=== PATIENT | male | born 1950 | race Caucasian/White ===

== ENCOUNTER 2018-10-11 16:49 | Emergency (ER) | payer OTHER, MEDICARE ==
--- NOTE | 2018-10-11 16:51 | PDOC ---
History of Present Illness - General Chief Complaint: Laceration Stated Complaint: RT 5TH FINGER LACERATION Time Seen by Provider: 10/11/18 16:50 History Source: Patient Exam Limitations: No Limitations - History of Present Illness Initial Comments: 10/11/18 16:51 67 Year old male presented to ED for cut to right fifth finger. Pt stated he was cutting potatoes and accidentally cut his finger. Pt stated he does not remember his last tetanus shot. Pt denied AC. Pt reported numbness at the tip of his finger. Past History - Past Medical History Allergies/Adverse Reactions: Allergies Allergy/AdvReac Type Severity Reaction Status Date / Time Penicillins Allergy Verified 10/11/18 16:50 Home Medications: Ambulatory Orders Losartan Potassium mg PO DAILY 10/11/18 Metoprolol Succinate [Toprol Xl] 25 mg PO DAILY 10/11/18 Simvastatin mg PO DAILY 10/11/18 Review of Systems - Review of Systems Able to Perform ROS?: Yes Comments:: 10/11/18 16:51 General: denied fever, chills, night sweats, generalized weakness. HEENT: denied sore throat, rhinorrhea, ear pain. Heart: denied chest pain, palpitations, syncope, lower extremity swelling, diaphoresis. Respiratory: denied shortness of breath, cough, sputum production, hemoptysis. Abdomen: denied abdominal pain, nausea, vomiting, diarrhea, constipation, blood in stool. : denied dysuria, increased urinary frequency, hematuria, urinary incontinence , flank pain. Back: denied back pain. Musculoskeletal: admitted to right fifth finger pain. Neurological: denied headache, dizziness, numbness, tingling, weakness. Skin: admitted to laceration. *Physical Exam - Physical Exam Comments: 10/11/18 16:51 Constitutional: Well-nourished, Well-developed, appearing stated age. HEENT: head is normocephalic, atraumatic. EOMI. PERRLA. Neck: supple. Full ROM. Heart: regular rhythm. no murmurs, rubs or gallops. Lungs: clear to auscultation bilaterally. no crackles, rhonchi or wheezing. no stridor. Abdomen: soft, nontender. normal bowel sounds. no rebound, guarding, masses. Extremities: Peripheral pulses intact. No lower extremity edema. Neurological: CN 2-12 grossly intact. Moves all four extremities. Psych: awake, alert, oriented x3. Follows commands. Answers questions appropriately. Skin: superficial skin avulsion at distal pulp of right fifth finger with continuous bleeding. Procedures - Laceration/Wound Repair Right Finger 5th digit Wound Length: to 2.5 cm Wound Explored: clean Wound's Depth, Shape: superficial Irrigated w/ Saline: Yes Anesthesia: 1% Lidocaine Amount of Anesthetic (ccs): 8 Wound Repaired With: Sutures Suture Size/Type: 5:0 Number of Sutures: 2 (Absorbable. Dressing applied using bacitracin and gauze. ) Medical Decision Making - Medical Decision Making 10/11/18 16:589 year old male presented to ED for cut to right fifth finger. Initial Vital Signs Temp Pulse Resp BP Pulse Ox 97.8 F 79 18 159/87 100 10/11/18 16:49 10/11/18 16:49 10/11/18 16:49 10/11/18 16:49 10/11/18 16:49 Tetanus ordered for ppx. Surgicel applied with compression dressing to control bleeding. Will reassess. 10/11/18 17:55 Wound continued to bleed depsite surgicel. Wound was repaired with sutures. - Wound was irrigated with normal saline under pressure - 1 figure 8 5.0 absorbable suture placed - 1 5.0 absorbable suture placed Wound had minimal blood oozing, surgicel was applied over top with bacritracin and gauze dressing applied. Gauze did not soak through with blood. Pt informed to keep the wound clean and dry for 24-48 hours. Pt informed to follow up with his primary care doctor. Pt discharged. *DC/Admit/Observation/Transfer Diagnosis at time of Disposition: Avulsion of skin of finger - Discharge Dispostion Disposition: HOME Condition at time of disposition: Stable Decision to Admit order: No - Referrals - Patient Instructions Printed Discharge Instructions: DI for Laceration Repair Additional Instructions: You were seen today for an skin avulsion of the finger. You have surgicel applied to the wound. The surgicel will turn black over time, this is not a concern. Follow up with your primary care doctor in 2-3 days. Keep the wound clean and dry for 24-48 hours. Then change the dressing daily until the surgicel falls off. Return to the Emergency Department for increasing pain, continuous bleeding, lightheadedness, chest pain, shortness of breath, discharge from the wound site, redness surrounding the wound site or any other new, worsening or concerning symptoms. Take tylenol and or motrin over the counter for your pain, take as advised on labels. - Post Discharge Activity
[2018-10-11 16:57] VITALS: BP 159/87; PULSE 79; TEMP 97.8; BMI 26.2
[2018-10-11] MEDS ORDERED: TETANUS AND DIPHTHERIA TOXOID 0.5 ML DISP.SYRIN IM ONE (17:01)
[2018-10-11] MEDS ORDERED: DIPHTH,PERTUSS(ACELL),TET 0.5 ML DISP.SYRIN IM ONE ×2 (17:03→17:04)
--- NOTE | 2018-10-11 17:15 | PDOC ---
Attending Attestation - Resident Resident Name: Chela Renee - ED Attending Attestation I have performed the following: I have examined & evaluated the patient, The case was reviewed & discussed with the resident, I agree w/resident's findings & plan - HPI HPI: 10/11/18 17:14 67 YOM with HTN, HLD p/w right pinky fingertip skin laceration s/p accidentally cut by knife while cutting potatoes. +bleeding last tetanus unknown. no paresthesias or weakness. able to move fingers - Physicial Exam PE: 10/11/18 17:15 General: NAD, well appearing Vascular: 2+ radialis pulses symmetric and equal. Neuro: distal moderate needs teacher strength 5/5. sensation grossly intact in median/radial/ ulnar distribution. MSK: soft compartments, Cap refill <2 sec. 2+ radialis pulses bilaterally and symmetric. FDP/FDS intact. no joint tenderness. FROM. Skin: color normal color, warm and well perfused. very superficial distal fingertip pulp laceration on volar surface on rt 5th digit. +bleeding nonbleeding, nontender. - Medical Decision Making 10/11/18 17:45 hpi as documented VS wnl attempts at wound compression and surgicel, oozed through 2 absorbable sutures placed to avulsed fingertip superficially, hemostasis achieved, no complications wound care instructions. topical surgicel little tissue for complete approximation. f/u PCP, monitor for s/s infection. pt verbalized understanding.
== END 2018-10-11 18:00 | disposition home or self-care (01) ==
LOC: FER 16:49
PROC: 0HQFXZZ Repair Right Hand Skin, External Approach (ICD-10-PCS; principal; 2018-10-11)
DX: S61.216A Laceration without foreign body of right little finger without damage to nail, initial encounter (principal); W26.0XXA Contact with knife, initial encounter; Y93.G1 Activity, food preparation and clean up; Y92.89 Other specified places as the place of occurrence of the external cause
CPT/HCPCS: 12001; 90715; 99283-25